=== PATIENT | male | born 1980 | race Caucasian/White ===

== ENCOUNTER 2025-03-31 09:54 | Inpatient (IN) | payer SELFPAY ==
[2025-03-31] VITALS (7 sets, daily range): BP systolic 128–160; BP diastolic 58–80; PULSE 64–98; RESP 17–20; TEMP 36.8–37; O2SAT 95–99; BMI 20.3
--- NOTE | 2025-03-31 | ECHO_ITS ---
Patient Info Name: Wilber Garza Age: 45 years : 1980 Gender: Male Ht: 72 in Wt: 149 lbs BSA: 1.84 m2 HR: 88 bpm BP: 140 / 75 mmHg Heart Rhythm: Sinus Rhythm Technical Quality: Good Exam Date: 03/31/2025 2:29 PM Patient Status: I Admit Date: 03/31/2025 Exam Type: CA echo doppler w bubble study Complete two-dimensional, color flow and Doppler transthoracic echocardiogram is performed with agitated saline. Staff Referring Physician: Sierra Flores Occupational Therapist Home Based: Mirian Limon Attending Provider: Reynaldo Herrera Contrast/Agitated Saline Contrast/Ag. Saline: Agitated Saline Amount: 20.00 ml Summary 1. Left ventricular chamber dimension is normal. 2. Left ventricular systolic function is normal, estimated at 60-65. 3. There is no increased left ventricular wall thickness. 4. The left ventricular diastolic function is grade I diastolic dysfunction. 5. Hypermobility seen in the right atrium. Possible Chiari network but more prominent than typical. Recommend advanced imaging such as transesophageal echocardiogram for further delineation. 6. There is mild tricuspid valve regurgitation. 7. There is mild pulmonic regurgitation. 8. A scant number of bubbles seen in the systemic circulation after several cardiac cycles with Valsalva. Consider tiny PFO or pulmonary AVM. Left Ventricle Left ventricular chamber dimension is normal. Left ventricular systolic function is normal, estimated at 60-65. There is no increased left ventricular wall thickness. The left ventricular diastolic function is grade I diastolic dysfunction. Right Ventricle Right ventricular chamber dimension is normal. Right ventricular systolic function is normal. Left Atria Left atrial chamber dimension is normal. Right Atria Right atrial chamber dimension is normal. Hypermobility seen in the right atrium. Possible Chiari network but more prominent than typical. Recommend advanced imaging such as transesophageal echocardiogram for further delineation. Atrial Septum A scant number of bubbles seen in the systemic circulation after several cardiac cycles with Valsalva. Consider tiny PFO or pulmonary AVM. Aortic Valve The aortic valve is trileaflet. There is mild aortic valve sclerosis. There is no aortic valve stenosis. There is trace aortic valve regurgitation. Pulmonic Valve The pulmonic valve is normal. There is no pulmonic valve stenosis. There is mild pulmonic regurgitation. Mitral Valve The mitral valve has normal leaflets. There is no mitral valve stenosis. There is trace mitral valve regurgitation. Tricuspid Valve The tricuspid valve leaflets are normal. There is no significant tricuspid valve stenosis. There is mild tricuspid valve regurgitation. No pulmonary hypertension, estimated pulmonary arterial systolic pressure is 34 mmHg. Pericardium/Pleural The pericardium appears normal. There is trivial pericardial effusion. Inferior Vena Cava Normal inferior vena cava with >50% collapse upon inspiration consistent with normal right atrial pressure, 5 mmHg. Aorta The aortic root size at the sinus of Valsalva is normal. Left Ventricular Outflow Tract Name Value Normal LVOT 2D LVOT Diameter 2.3 cm LVOT Doppler LVOT Peak Velocity 105 cm/s LVOT Peak Gradient 4 mmHg LVOT Mean Gradient 2 mmHg LVOT VTI 22 cm LVOT Stroke Volume 93 ml LVOT CO 8.5 l/min LVOT CI 4.6 l/min/m2 Pulmonic Valve Name Value Normal RVOT Doppler RVOT Peak Velocity 83 cm/s RVOT Peak Gradient 3 mmHg PV Doppler PV Peak Velocity 139 cm/s PV Peak Gradient 8 mmHg Mitral Valve Name Value Normal MV Doppler MV Peak Gradient 4 mmHg MV Mean Gradient 2 mmHg MV Area (Cont Eq VTI) 3.9 cm2 MV Diastolic Function MV E Peak Velocity 83 cm/s MV A Peak Velocity 85 cm/s MV E/A 1.0 MV Decel Time (PW) 291 ms MV Annular TDI MV E/e' (Septal) 8.2 MV E/e' (Lateral) 5.4 MV E/e' (Average) 6.8 Tricuspid Valve Name Value Normal Estimated PAP/RSVP RA Pressure 5 mmHg <=5 PA Systolic Pressure 34 mmHg <36 Aortic Valve Name Value Normal AV Doppler AV Peak Velocity 134 cm/s AV Peak Gradient 7 mmHg AV Area (Cont Eq Junaid) 3.3 cm2 AV DI (Junaid) 0.79 AV Regurgitation 2D LVOT Area 4.2 cm2 Ventricles Name Value Normal LV Dimensions 2D/MM IVS Diastolic Thickness (2D) 0.5 cm 0.6-1.0 LVID Diastole (2D) 5.2 cm 4.2-5.8 LVIW Diastolic Thickness (2D) 0.8 cm 0.6-1.0 LVID Systole (2D) 3.5 cm 2.5-4.0 LVOT Diameter 2.3 cm LV Mass (2D Cubed) 104.88 g 88.00-224.00 LV Mass Index (2D Cubed) 57 g/m2 49-115 Relative Wall Thickness (2D) 0.29 <=0.42 LV Fractional Shortening/Ejection Fraction 2D/MM LV Fractional Shortening (2D) 32 % 25-43 LV EF (2D Teichholz) 59 % LV Diastolic Volume (4C MOD) 132 ml LV EF (4C MOD) 64 % LV Diastolic Volume (2C MOD) 134 ml LV EF (2C MOD) 68 % LV Diastolic Volume (BP MOD) 138 ml 62-150 LV Diastolic Volume Index (BP MOD) 75 ml/m2 34-74 LV Systolic Volume (BP MOD) 47 ml 21-61 LV Systolic Volume Index (BP MOD) 26 ml/m2 11-31 LV EF (BP MOD) 66 % 52-72 LV Diastolic Length (4C) 8.7 cm LV Systolic Length (4C) 6.9 cm LV Stroke Volume (4C MOD) 85 ml Atria Name Value Normal LA Dimensions LA Volume (4C A-L) 32 ml LA Volume (BP A-L) 38 ml RA Dimensions RA Systolic Major [place] Length (4C) 5.1 cm 2.1-2.7 RA Area (4C) 14.2 cm2 <=18.0 Report Signatures
--- NOTE | ~2025-03-31 | CT_ITS ---
CTA NECK, CTA HEAD Clinical History: new L sided weakness Comparison: CT brain today TECHNIQUE: Helical images thoracic inlet to vertex IV contrast information not listed in PACS Coronal, sagittal reformats. Multi planar MIPS CT images acquired with automatic exposure control for dose reduction DLP: 1054 mGy-cm Findings: NASCET Criteria utilized CTA NECK Aortic arch: No aneurysm or dissection. Great vessel origins: No stenosis. CCAs: No stenosis. Cervical ICAs: No stenosis. Vertebral Arteries: Patent. Lung Apices: Clear. Thyroid: Unremarkable. Nodes: No enlarged nodes. Bones: No acute bony abnormality. CTA HEAD: Aneurysms: None. Intracranial ICAs: Patent, unremarkable. ACAs and their distal branches: Patent, unremarkable. A-Comm: Identified. Patent, unremarkable. MCAs and their distal branches: Patent, unremarkable. Basilar artery: Patent, unremarkable. plastering contractor and their distal branches: Patent, unremarkable. P-Comms: Neither side present. IMPRESSION: CTA NECK: 1. No acute findings. CTA HEAD: 1. No acute findings. Reviewed, dictated and finalized at location R. SITE DEVELOPER
--- NOTE | ~2025-03-31 | XR_ITS ---
Examination: XR chest 1V Clinical History: left sided weakness Comparison: None Technique: Portable AP Findings: Tiny circular metallic foreign body overlying right heart border. Rounded calcification right axilla. Heart size normal. Lungs clear. No acute bony abnormality. IMPRESSION: 1. No acute cardiopulmonary findings given portable technique. Reviewed, dictated and finalized at location [facility]. [facility]
--- NOTE | ~2025-03-31 | CT_ITS ---
CT HEAD NON-CONTRAST Clinical History: left sided weakness Comparison: None Technique: Unenhanced axial images skull base to vertex Coronal, sagittal reformats CT images acquired with automatic exposure control for dose reduction DLP: 605 mGy-cm Findings: Sulci, ventricles: Unremarkable. No intracerebral hemorrhage. No evidence acute territorial infarct. No mass effect, midline shift. Bony calvarium intact. Visualized paranasal sinuses: Clear. Mastoid air cells: Clear. IMPRESSION: 1. No acute intracranial findings. Reviewed, dictated and finalized at location [facility]. [facility]
--- NOTE | 2025-03-31 10:17 | ECG_ITS ---
Test Date: 2025-03-31 10:21:32 Measurements Intervals [place] Rate: 90 P: 78 ND: 154 QRS: 72 QRSD: 103 T: 57 QT: 340 QTc: 417 Interpretive Statements SINUS RHYTHM No previous ECG available for comparison Electronically Signed On 03-31-2025 13:40:14 FINANCE BUSINESS MANAGER by Prakash Ricks M.D.
[2025-03-31 10:40] LABS: Hematocrit 47.6 % (42.0-52.0); Hemoglobin 15.5 g/dL (14.0-18.0); Immature Granulocyte Percent A 0.5 % (0-0.5); Lymphocytes Absolute Auto 1.61 K/mm3 (0.9-3.2); Mean Corpuscular HGB Conc 32.6 g/dl (32-36); Mean Corpuscular Hemoglobin 28.9 pg (26-34); Mean Corpuscular Volume 88.8 fl (80-100); Nucleated Red Blood Cells Absolute Auto 0.000 K/mm3 (0.0-0.012); Nucleated Red Blood Cells Perc 0.0 % (0.0-0.2); Platelet Count Result 223 k/mm3 (150-375); Red Blood Count 5.36 M/mm3 (4.6-6.20); White Blood Count 14.0 K/mm3 (4.5-10.0)
[2025-03-31 10:53] LABS: Alanine Aminotransferase 28 U/L (6-50); Albumin Level 4.5 g/dL (3.5-5.1); Alkaline Phosphatase 119 U/L (38-126); Anion Gap 10 mmol/L (4-12); Aspartate Amino Transferase 26 U/L (17-59); Bilirubin,Total 0.4 mg/dL (0.2-1.3); Blood Urea Nitrogen 8 mg/dL (9-20); Calcium 9.5 mg/dL (8.4-10.2); Carbon Dioxide 22 mmol/L (22-30); Chloride 106 mmol/L (98-107); Estimated CRCL calculation 103 ml/min; Estimated Glomerular Filt Rate > 60; Glucose 167 mg/dL (65-110); Potassium 4.0 mmol/L (3.4-5.0); Sodium 138 mmol/L (137-145); Total Protein 7.6 g/dL (6.3-8.2)
[2025-03-31 11:04] LABS: INR 1.0; Prothrombin Time 13.1 Seconds (11.1-14.7)
[2025-03-31 11:05] LABS: Partial Thromboplastin Time 32.3 Seconds (22.3-36.8); Troponin I < 0.012 ng/mL (0.000-0.034)
--- OUTSIDE RECORDS SUMMARY | 2025-03-31 12:41 | XMS_ITS | Clinical Summary ---
Author Organization [facility] Address [address] [place] [address] Care Team Providers Care Warehouse Stock Clerk Name Role Phone Unavailable Primary Care Provider Unavailabl e Allergies No known active allergies Medications oxyCODONE-aceta minophen (PERCOCET) 5-325 mg Oral tablet 1 Tab. As needed Active moxifloxacin (MOXIFLOXICIN) 0.5 % OP solution Administer 2 Drops in left eye. 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 Gender Identity Not on file Sexual Orientation Not on file Last Filed Vital Signs Vital Sign Reading Time Taken Comments Blood Pressure 124/64 02/04/2012 5:06 PM CDT Pulse - - Temperature - - Respiratory Rate - - Oxygen Saturation - - Inhaled Oxygen Concentration - - Weight 72.6 kg (160 lb) 02/04/2012 5:06 PM CDT Height 182.9 cm (6') 02/04/2012 5:06 PM CDT Body Mass Index 21.7 02/04/2012 5:06 PM CDT Plan of Treatment Health Maintenance Due Date Last Done Comments DTAP/TDAP/TD VACCINES (1 - Tdap) 02/10/2000 HEPATITIS B VACCINES (1 of 3 - 19+ 3-dose series) 11/1999 HPV VACCINES (1 - 3-dose SCDM series) 02/10/2008 INFLUENZA VACCINE (#1) 2024
--- NOTE | 2025-03-31 14:01 | P.HP_ITS ---
H&P: HPI History of Present Illness Date/Time: 03/31/25 14:01 Chief Complaint: Left Sided Weakness Narrative: 45 y/o M current smoker with no significant PMH presents here with left sided weakness. The patient presents here from home on 03/31 for further evaluation of left sided weakness and speech changes. He first noticed change around 8-9 p.m. on 03/30 prior to going to bed. Noted numbness to his LUE, weakness in his LUE/LLE, and changes in the speech. States he last felt he was in his normal state of health around 4-5 p.m. on 03/30. Did not seek care at that time as he was tired and hoped his symptoms would resolve on their own. Patient then woke this morning with persistent symptoms including left upper extremity weakness, left lower extremity weakness that has made ambulation difficult, and dysarthria/slow speech. States the symptoms were worse compared to the day prior and have worsened since arrival. He denies previous history of TIA or CVA. He reports family history of stroke - mother. He is a current everyday smoker - 2 PPD. The patient is not currently on anticoagulation. Has not seen a primary care provider for some time or head general lab work. Initial VS at presentation: 98.2? F, HR 94, R 20, 148/74, and 98% on RA. ED workup showed: WBC 14.0, no anemia, normal coags, no significant electrolyte derangements, creatinine 0.76 and GFR >60, glucose 167, initial troponin negative. Head CT showed no acute intracranial findings. CXR showed no acute cardiopulmonary findings. Head/neck CTA showed no acute findings. EKG showed sinus rhythm, rate 90. Review of Systems Review of Systems: All systems reviewed & are unremarkable except as noted in HPI and below [facility] Past Medical History Medical History Current smoker Social History Social History Smoking packs per day: 2 Smoking cigarettes per day: 40.0 Smoking status: Current every day smoker Tobacco type: cigarettes Alcohol intake: never Substance use: current Substance use type: marijuana Lack of Transportation: No Lack of Food: Never True Current Housing: I Have Housing Concerned About Future Housing: No Difficulty Paying Gas/Electric Bills: No Difficulty Paying for Meds: No Currently Unemployed: No Education: High School Diploma/GED Difficulty w/ Childcare or Family Care: No Spiritual care concerns: No Meds Home Medications and Allergies Home Medications ?Medication ?Instructions ?Recorded ?Confirmed ?Type No Home Medications 03/31/25 03/31/25 H istory Allergies Allergy/AdvReac Type Severity Reaction Status Date / Time No Known Allergies Allergy Verified 03/31/25 15:27 Vital Signs Vital Signs - 24 hr 03/31/25 10:12 03/31/25 12:17 Temperature 98.2 F Pulse Rate 94 98 Respiratory Rate 20 20 Blood Pressure 148/74 H 160/78 H Pulse Oximetry 98 98 Oxygen Delivery Room Air Exam Const: General: comfortable and no acute distress Other: , male, nontoxic appearance HENMT: Face/Nose/Sinus: Normal nares present Mouth: Yes moist mucous membranes Eyes: General: appearance normal, both eyes and all related structures Sclera: sclerae normal Pupils: Equal, round and reactive pupils present EOM: EOMs intact bilaterally Resp: Effort & Inspection: normal respiratory effort Auscultation: clear to auscultation bilaterally Cardio: Rate: regular rate Rhythm: regular rhythm Other: S1-S2 present without murmur, rub, ectopy GI: Other: Abdomen soft, nondistended, nontender. Normoactive bowel sounds in all quadrants. Skin: General skin exam: normal color and no rashes or lesions noted Wounds: no wounds Neuro: Other: Left facial droop noted. Trace dysarthria, however more so slow speech deny. +4 LUE. + RLE/RUE. Trace weakness in the LLE. Significant group fitness department head weakness in the left hand. +ataxia in the LUE, present in the left lower extremity however not as significant as the LUE. EOM intact. A/Ox4. Extrem: General: normal to inspection Psych: Mental Status: mental status grossly normal Affect: normal affect Other: Good insight and judgment, pleasant H&P: Results Labs Labs: Short CBC 03/31/25 Range/Units 10:27 WBC 14.0 H (4.5-10.0) K/mm3 Hgb 15.5 (14.0-18.0) g/dL Hct 47.6 (42.0-52.0) % Plt Count 223 (150-375) k/mm3 [facility] 03/31/25 10:27 Sodium 138 Potassium 4.0 Chloride 106 Carbon Dioxide 22 BUN 8 L Creatinine 0.76 Glucose 167 H Calcium 9.5 Cardiac Enzymes 03/31/25 Range/Units 10:27 Troponin I < 0.012 (0.000-0.034) ng/mL Liver Function 03/31/25 Range/Units 10:27 Total Bilirubin 0.4 (0.2-1.3) mg/dL AST 26 (17-59) U/L ALT 28 (6-50) U/L Alkaline Phosphatase 119 (38-126) U/L Albumin 4.5 (3.5-5.1) g/dL Assessment and Plan Assessment and plan (1) Acute left-sided weakness: Code(s): R53.1 - Weakness Status: Acute Assessment and Plan: New deficits of left upper extremity weakness, left lower extremity weakness, ataxia, dysarthria starting on 03/31 at 8/9 p.m. Last known well at 4/5 p.m. on 03/30. - admission for observation and telemetry - not candidate for thrombolytics due to timeframe or thrombectomy as there is no LVO on CTA - CXR, Head CT, and CTA unremarkable on 03/31 - neurology consulted - brain MRI w/wo ordered - echo w/Bubble ordered - neuro checks Q4 - PT/OT/ST to eval and treat ST >> okay for regular diet (level 7) and thin liquids (0) - monitor daily labs, add lipid panel and A1C - start Atorvastatin 40 mg PO, Plavix 75 mg PO, ASA 81 mg - consider 30 day event monitoring at discharge if abnormalities noted on telemetry (2) Hyperglycemia: Code(s): R73.9 - Hyperglycemia, unspecified Status: Acute Assessment and Plan: - No previous history of diabetes. - Initial glucose 167. - Check A1C. (3) Current smoker: Code(s): F17.200 - Nicotine dependence, unspecified, uncomplicated Status: Chronic Assessment and Plan: 2 PPD. no current interest in cessation. - nicotine patch. Plan Diet: Heart healthy GI Prophylaxis: N/a DVT Prophylaxis: SCDs IV fluids: none Lines/Tubes: pIV Code Status: Full Code Quality VTE Prophylaxis VTE prophylaxis: mechanical ordered Hospitalist [facility] Advance Care Plan I have confirmed that the patient's Advanced Care Plan is present, code status is documented, or surrogate decision maker is listed in patient medical record.: Yes Medication Reconciliation I have utilized all available resources to obtain, update and review the patients current medications (includes all prescriptions, OTC, herbals, cannabis, and nutritional supplements).: Yes
--- NOTE | 2025-03-31 14:03 | ED.NEUROSD ---
HPI - Neuro Symptoms/Deficit General Chief Complaint: Neuro Symptoms/Deficit Stated Complaint: unable to move the left side since last night Time Seen by Provider: 03/31/25 12:22 History of Present Illness HPI Narrative: Right before patient went to bed last night, he noticed that his left side seems a little bit weaker, this morning when he woke up he was definitely much weaker on the left side, especially to his arm and leg. Has never had symptoms like this before. No history strokes or any other medical issues Related Data Allergies Allergy/AdvReac Type Severity Reaction Status Date / Time No Known Allergies Allergy Unverified 12/17/13 10:45 Review of Systems Review of Systems: All systems reviewed & are unremarkable except as noted in HPI and below Exam Narrative: EXAMINATION OF ORGAN SYSTEMS/BODY AREAS: Constitutional: Vital signs per nursing GENERAL:[No acute distress, non-toxic appearing.] HEAD: Normal with no signs of head trauma. EYES: EOMI, conjunctiva normal, PERRL ENT: Hearing grossly intact LUNGS: Nonlabored breathing. HEART: [Regular rate and rhythm] ABD: [Soft], [nontender to palpation] EXT: No obvious deformity SKIN: [No rashes or lesions.] NEURO: [Alert and oriented x 3. Slight drift and ataxia to left upper extremity, drift to left lower extremity, slightly diminished sensation to left upper extremity, no facial droop] PSYCH: Normal affect Course Vital Signs Vital signs: Vital Signs Temperature 98.2 F 03/31/25 10:12 Pulse Rate 94 03/31/25 10:12 Respiratory Rate 20 03/31/25 10:12 Blood Pressure 148/74 H 03/31/25 10:12 Pulse Oximetry 98 03/31/25 10:12 Oxygen Delivery Room Air 03/31/25 10:12 Temperature 98.2 F 03/31/25 10:12 Pulse Rate 95 03/31/25 14:11 Respiratory Rate 17 03/31/25 14:11 Blood Pressure 140/75 03/31/25 14:11 Pulse Oximetry 99 03/31/25 14:11 Oxygen Delivery Room Air 03/31/25 10:12 MDM - Neuro Symptoms/Deficit MDM Narrative Medical decision making narrative: Patient presents with acute left-sided weakness since last night. On exam he does have left-sided weakness, worst with left arm and leg compared to the right, though he still making effort against gravity. Does also have some slightly diminished sensation. Unfortunately out of tPA window, CTA head and neck does not show any large vessel occlusion amenable to intervention. He does have elevated white count otherwise unremarkable labs. EKG on my independent interpretation shows normal sinus rhythm rate 90, MS 154, QRS 103, QTC 417. No obvious ST elevations or depressions signs of acute ischemia or arrhythmia Discussed with patient findings, discussed with neurologist with plan for admission for MRI and possible rehab. Discussed with hospitalist. Lab Data 03/31/25 10:03/31/25 10: Labs: Lab Results 03/31/25 03/31/25 Range/Units 10: 10: WBC 14.0 H (4.5-10.0) K/mm3 RBC 5.36 (4.6-6.20) M/mm3 Hgb 15.5 (14.0-18.0) g/dL Hct 47.6 (42.0-52.0) % MCV 88.8 (80-100) fl MCH 28.9 (26-34) pg MCHC 32.6 (32-36) g/dl RDW 14.0 (11.5-14.5) % Plt Count 223 (150-375) k/mm3 MPV 10.8 H (7.4-10.4) fl Immature Gran % (Auto) 0.5 (0-0.5) % Neut % (Auto) 83.0 H (45.5-73.1) % Lymph % (Auto) 11.5 L (18.3-44.2) % [place] % (Auto) 4.6 (2.6-8.5) % Eos % (Auto) 0.1 (0-4.4) % Baso % (Auto) 0.3 (0.2-1.2) % Lymph # (Auto) 1.61 (0.9-3.2) K/mm3 [place] # (Auto) 0.7 H (0.1-0.6) K/mm3 Eos # (Auto) 0.0 (0-0.3) K/mm3 Baso # (Auto) 0.0 (0.0-0.1) K/mm3 Abs Immat Gran (auto) 0.07 H (0.00-0.031) K/mm3 Absolute Neuts (auto) 11.7 H (1.3-6.7) K/mm3 Absolute Nucleated RBC 0.000 (0.0-0.012) K/mm3 Nucleated RBC % 0.0 (0.0-0.2) % PT 13.1 (11.1-14.7) Seconds INR 1.0 APTT 32.3 (22.3-36.8) Seconds Sodium 138 (137-145) mmol/L Potassium 4.0 (3.4-5.0) mmol/L Chloride 106 (98-107) mmol/L Carbon Dioxide 22 (22-30) mmol/L Anion Gap 10 (4-12) mmol/L BUN 8 L (9-20) mg/dL Creatinine 0.76 (0.7-1.3) mg/dL Estim Creat Clear Calc 103 ml/min Estimated GFR > 60 (59 - ) Glucose 167 H (65-110) mg/dL POC Capillary Glucose 183 H (65-105) mg/dl Calcium 9.5 (8.4-10.2) mg/dL Total Bilirubin 0.4 (0.2-1.3) mg/dL AST 26 (17-59) U/L ALT 28 (6-50) U/L Alkaline Phosphatase 119 (38-126) U/L Troponin I < 0.012 (0.000-0.034) ng/mL Total Protein 7.6 (6.3-8.2) g/dL Albumin 4.5 (3.5-5.1) g/dL Critical Care Time Critical Care Time Critical Care Time: Yes Total Critical Care Time: 31 Discharge Plan Discharge Clinical Impression: Acute left-sided weakness Patient Disposition: Still a Patient Condition: Serious Quality Stroke Date of last known normal: 03/30/25 Time of last known normal: 22:00 Stroke Scale Stroke Scale 1: Stroke scale date:: 03/31/25 Stroke scale time:: 12:30 1a Level of consciousness: alert-0 1b Level of consciousness questions: answers both correctly-0 1c Level of consciousness commands: obeys both correctly-0 2 Best gaze: normal-0 3 Visual: no visual loss-0 4 Facial palsy: normal-0 5a Motor: left arm: drift-1 5b Motor: right arm: no drift-0 6a Motor: left leg: drift-1 6b Motor: right leg: no drift-0 7 Limb ataxia: present in one limb-1 8 Sensory: pinprick less sharp-1 9 Best language: no aphasia-0 10 Dysarthria: normal-0 11 Extinction and inattention: no abnormality-0 Level:: 4
[2025-03-31] MEDS: ASPIRIN 81 MG CHEWABLE TABLET 324 MG PO (14:13)
[2025-03-31] MEDS: CLOPIDOGREL BISULFATE 75 MG TABLET PO (14:13)
--- OUTSIDE RECORDS SUMMARY | 2025-03-31 14:18 | XMS_ITS | Clinical Summary ---
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
--- NOTE | 2025-03-31 14:20 | WPCEDHO ---
ED Hand Off Checklist All vitals saved:y IV Site documented:y All med administrations documented:y Triage Note Triage Note Brought to ed by family with 03/31/25 10:12 weakness to left side that started last night before he went to bed. Speech is slow and slurred at times. Has left arm drift and difficulty walking due to left leg weakness. Allergies No Known Allergies Allergy (Unverified 12/17/13 10:45) Administered/Completed Medications Discontinued Medications Aspirin (Aspirin 81 Mg Chewable Tablet) 324 mg PO ONCE STA Stop: 03/31/25 14:00 Last Admin: 03/31/25 14:13 Dose: 324 mg Documented By: DAMON Clopidogrel Bisulfate (Clopidogrel Bisulfate 75 Mg Tablet) 75 mg PO ONCE STA Stop: 03/31/25 14:00 Last Admin: 03/31/25 14:13 Dose: 75 mg Documented By: DAMON Interventions/Assessments IV / Saline Lock, Insert Start: 03/31/25 10:17 Freq: STAT Status: Active Protocol: Document 03/31/25 12:26 AZG (Rec: 03/31/25 12:26 AZG [id number]) IV Assessment Peripheral Access Right Forearm IV Catheter Access Initiated IV Insertion Date 03/31/25 IV Insertion Time 12:26 Catheter Gauge 18 IV Site Assessment WNL IV Care and WNL Maintenance PA: Neurological Assessment Start: 03/31/25 09:55 Freq: Status: Active Protocol: Document 03/31/25 12:43 AZG (Rec: 03/31/25 12:46 [email or web address] [id number]) Neurological Assessment Level of Alert,Awake Consciousness Arousable to Verbal Orientation Oriented to Person,Oriented to Place,Oriented to Time Neurological Weakness, Focal Symptoms Hallucination Type None Unable to Redirect No Behavior Behavior Appropriate,Cooperative Patient Able to Comprehend Comprehension Memory Description Intact Facial Symmetry Symmetrical Speech Pattern Delayed,Slurred Ability to Swallow Normal Tongue Position Midline Finger to Nose Test Minimal Impairment Heel to [place] Test Minimal Impairment Left Leg(s) Extremity Movement Weak Push Description Left Arm(s) Extremity Movement 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,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 Push Description Ricki Coma Scale Eyes Open Verbal Oriented and Alert Motor Follows Commands [place] Coma Total 15 Score Last Vital Signs Temperature 98.2 F 03/31/25 10:12 Pulse Rate 95 03/31/25 14:11 Respiratory Rate 17 03/31/25 14:11 Pulse Oximetry 99 03/31/25 14:11 Blood Pressure 140/75 03/31/25 14:11 Blood Pressure Mean 96 03/31/25 14:11 Blood Pressure Position Sitting 03/31/25 14:11 Oxygen Delivery Room Air 03/31/25 10:12 Weight 68 kg 03/31/25 10:12 Last Result - Abnormals Only WBC 14.0 K/mm3 (4.5-10.0) H 03/31/25 10:27 MPV 10.8 fl (7.4-10.4) H 03/31/25 10:27 Neut % (Auto) 83.0 % (45.5-73.1) H 03/31/25 10:27 Lymph % (Auto) 11.5 % (18.3-44.2) L 03/31/25 10:27 [place] # (Auto) 0.7 K/mm3 (0.1-0.6) H 03/31/25 10:27 Abs Immat Gran (auto) 0.07 K/mm3 (0.00-0.031) H 03/31/25 10:27 Absolute Neuts (auto) 11.7 K/mm3 (1.3-6.7) H 03/31/25 10:27 BUN 8 mg/dL (9-20) L 03/31/25 10:27 Glucose 167 mg/dL (65-110) H 03/31/25 10:27 POC Capillary Glucose 183 mg/dl (65-105) H 03/31/25 10:24 Most Recent Suicide Severity Rating Suicide Severity Rating NO RISK INDICATED 03/31/25 10:12
--- NOTE | 2025-03-31 15:18 | ADMGEN ---
This patient, Wilber Garza, was admitted to 2 Medical Room 255-01. Patient/family oriented to hospital policies and general routines including ID bracelet, bed and alarms, visiting hours, pain management, procedures, bathroom and other care routines, personal items, smoking policy, room service/diet, and visiting hours. Information on how to activate the Rapid Response Team has been discussed. Patient/Family are encouraged to report perceived risks to care and to ask questions if they do not understand what they are told or what they should do.
[2025-03-31] MEDS: NICOTINE (*PBKC) 21 MG PATCH 1 PATCH TRANSDERM (15:24)
--- NOTE | 2025-03-31 15:33 | PCSTNOTE ---
Please refer to the Bedside Swallow Evaluation in the EMR. Please note, silent aspiration cannot be ruled out at bedside.
[2025-04-01] VITALS: PULSE 59
[2025-04-01 04:00] VITALS: PULSE 57
[2025-04-01 04:01] VITALS: BP 118/61; PULSE 70; RESP 18; TEMP 36.8; O2SAT 99
[2025-04-01 04:29] LABS: Hematocrit 48.4 % (42.0-52.0); Hemoglobin 15.5 g/dL (14.0-18.0); Immature Granulocyte Percent A 0.4 % (0-0.5); Lymphocytes Absolute Auto 3.93 K/mm3 (0.9-3.2); Mean Corpuscular HGB Conc 32.0 g/dl (32-36); Mean Corpuscular Hemoglobin 28.5 pg (26-34); Mean Corpuscular Volume 89.0 fl (80-100); Nucleated Red Blood Cells Absolute Auto 0.000 K/mm3 (0.0-0.012); Nucleated Red Blood Cells Perc 0.0 % (0.0-0.2); Platelet Count Result 232 k/mm3 (150-375); Red Blood Count 5.44 M/mm3 (4.6-6.20); White Blood Count 13.1 K/mm3 (4.5-10.0)
[2025-04-01 04:54] LABS: Anion Gap 5 mmol/L (4-12); Blood Urea Nitrogen 8 mg/dL (9-20); Calcium 9.6 mg/dL (8.4-10.2); Carbon Dioxide 27 mmol/L (22-30); Chloride 107 mmol/L (98-107); Cholesterol 226 mg/dL (0-200); Estimated CRCL calculation 88 ml/min; Estimated Glomerular Filt Rate > 60; Glucose 111 mg/dL (65-110); HDL Direct 44 mg/dL; Potassium 4.0 mmol/L (3.4-5.0); Sodium 139 mmol/L (137-145); Triglycerides 120 mg/dL (<150)
--- NOTE | 2025-04-01 07:30 | P.PNIM_ITS ---
Progress Note: A&P Assessment and Plan (1) Acute left-sided weakness: Code(s): R53.1 - Weakness Status: Acute Assessment and Plan: New deficits of left upper extremity weakness, left lower extremity weakness, a taxia, dysarthria starting on 03/31 at 8/9 p.m. Last known well at 4/5 p.m. on 03/30. Not candidate for thrombolytics due to timeframe or thrombectomy as there is no LVO on CTA - Lipid panel - CXR, Head CT, and CTA unremarkable on 03/31 - MRI ordered - Echo ordered - Start high-intensity statin - start Atorvastatin 40 mg PO, Plavix 75 mg PO, ASA 81 mg - Initiate stroke protocol, NIH Stroke Scale, neuro's q.4 hours - Monitor CBC, CMP, magnesium, troponin, and lipid profile - Monitor blood pressure, allow for permissive hypertension. - Telemetry monitoring - Monitor blood glucose - PT/OT/ST to eval and treat ST >> okay for regular diet (level 7) and thin liquids (0) - consider 30 day event monitoring at discharge if abnormalities noted on telemetry - Neurology consulted, appreciate assistance and recommendations (2) Hyperglycemia: Code(s): R73.9 - Hyperglycemia, unspecified Status: Acute Assessment and Plan: - No previous history of diabetes. - Initial glucose 167. - Check A1C, pending (3) Current smoker: Code(s): F17.200 - Nicotine dependence, unspecified, uncomplicated Status: Chronic Assessment and Plan: 2 PPD. no current interest in cessation. - nicotine patch. Subjective Date/time seen: 04/01/25 07:30 Interval history: 45 year old male smoker with no significant PMH presents to the hospital with left sided weakness and speech changes. Review of Systems Review of Systems: All systems reviewed & are unremarkable except as noted in HPI and below Exam Narrative: AF General: well nourished, well-developed male in no acute respiratory distress who is nontoxic appearing, lying semi recumbent in bed. HEENT: Normocephalic. Atraumatic. Pupils equal round reactive to light. Extraocular movement intact. Sclera clear and anicteric. Nares patent. No oral lesions. Moist mucous membranes. Tongue is midline. Palate estee symmetrically. No facial asymmetry. Neck: Neck was supple. No dominant adenopathy, thyromegaly or masses. 2+ carotid upstrokes without bruits. Chest: Lungs are clear to auscultation bilaterlly. No wheezes or crackles. CV: Heart was regular rate and rhythm. S1/S2. No murmurs, gallops, or rubs. Abd: Abdomen was soft. Nontender. Nondistended. Postive bowel sounds. No organomegaly or masses. Ext: No clubbing, cyanosis, or edema. 2+ DP pulses bilaterally. Neuro: Patient is alert and oriented x4. Strenth is 5/5 in both upper and lower extremities. Cranial nerves 2-12 are intact. Speech is clear. Psych: Normal nood and affect. Patient is pleasant and cooperative. Skin: Warm and dry. No rashes noted. Objective Data Vital Signs Vital Signs: Vital Signs - 24 hr 03/31/25 10:12 03/31/25 12:17 03/31/25 14:11 Temperature 98.2 F Pulse Rate 94 98 95 Respiratory Rate 20 20 17 Blood Pressure 148/74 H 160/78 H 140/75 Pulse Oximetry 98 98 99 Oxygen Delivery Room Air 03/31/25 15:13 03/31/25 15:20 03/31/25 16:00 Temperature 98.6 F Pulse Rate 89 93 Respiratory Rate 18 Blood Pressure 136/80 Pulse Oximetry 95 Oxygen Delivery Room Air 03/31/25 19:29 03/31/25 20:00 04/01/25 00:00 Temperature 98.2 F Pulse Rate 70 64 59 L Respiratory Rate 18 Blood Pressure 128/58 L Pulse Oximetry 99 Oxygen Delivery 04/01/25 04:00 04/01/25 04:01 Temperature 98.3 F Pulse Rate 57 L 70 Respiratory Rate 18 Blood Pressure 118/61 Pulse Oximetry 99 Oxygen Delivery Intake/Output Intake/Output: Intake & Output 03/29/25 03/30/25 03/31/25 04/01/25 23:59 23:59 23:59 23:59 Intake Total 250 390 Output Total 200 200 Balance 50 190 Meds/Results Medications: Active Medications Generic Name Dose Route Start Last Admin Trade Name Freq PRN Reason Stop Dose Admin Acetaminophen 650 mg 03/31/25 14:12 Acetaminophen 325 Mg Tablet PO Q4H PRN Mild Pain (1-3) or Fever Aspirin 81 mg 04/01/25 09:00 Aspirin 81 Mg Enteric Tablet PO [facility] Atorvastatin Calcium 40 mg 04/01/25 09:00 Atorvastatin 40 Mg Tablet PO DAILY [facility] Bisacodyl 5 mg 03/31/25 14:12 Bisacodyl 5 Mg Tablet Ec PO DAILY PRN Constipation Calcium Carbonate 200 mg 03/31/25 14:12 Calcium Carbonate (Tums) 500 Mg (200 Mg Elemental) PO Q6H PRN Indigestion Clopidogrel Bisulfate 75 mg 04/01/25 09:00 Clopidogrel Bisulfate 75 Mg Tablet PO QAM [facility] Nicotine 1 patch 04/01/25 09:00 Nicotine (*Pbkc) 21 Mg Patch TRANSDERM DAILY [facility] Ondansetron HCl 4 mg 03/31/25 14:12 Ondansetron Inj 4 Mg/2 Ml Vial IV PUSH Q6H PRN Nausea And Vomiting Perflutren Lipid Microsphere 0 ml 03/31/25 14:09 Perflutren Lipid Microspheres 1.5 Ml Vial Diluted To 10 Ml Total Volume IV PUSH 04/03/25 14:09 ONCE PRN adequate visualization Protocol Radiology Results: ITS Impressions Head CT 03/31/25 10:55 IMPRESSION: 1. No acute intracranial findings. Chest X-Ray 03/31/25 11:05 IMPRESSION: 1. No acute cardiopulmonary findings given portable technique. Head/Neck CTA 03/31/25 13:29 IMPRESSION: CTA NECK: 1. No acute findings. CTA HEAD: 1. No acute findings. Labs Labs: Laboratory Results - last 24 hr 03/31/25 03/31/25 04/01/25 10:24 10:27 04:22 WBC 14.0 H 13.1 H RBC 5.36 5.44 Hgb 15.5 15.5 Hct 47.6 48.4 MCV 88.8 89.0 MCH 28.9 28.5 MCHC 32.6 32.0 RDW 14.0 14.1 Plt Count 223 232 MPV 10.8 H 10.4 Immature Gran % (Auto) 0.5 0.4 Neut % (Auto) 83.0 H 62.0 Lymph % (Auto) 11.5 L 30.0 [place] % (Auto) 4.6 6.8 Eos % (Auto) 0.1 0.3 Baso % (Auto) 0.3 0.5 Lymph # (Auto) 1.61 3.93 H [place] # (Auto) 0.7 H 0.9 H Eos # (Auto) 0.0 0.0 Baso # (Auto) 0.0 0.1 Abs Immat Gran (auto) 0.07 H 0.05 H Absolute Neuts (auto) 11.7 H 8.1 H Absolute Nucleated RBC 0.000 0.000 Nucleated RBC % 0.0 0.0 PT 13.1 INR 1.0 APTT 32.3 Sodium 138 139 Potassium 4.0 4.0 Chloride 106 107 Carbon Dioxide 22 27 Anion Gap 10 5 BUN 8 L 8 L Creatinine 0.76 0.90 Estim Creat Clear Calc 103 88 Estimated GFR > 60 > 60 Glucose 167 H 111 H POC Capillary Glucose 183 H Calcium 9.5 9.6 Total Bilirubin 0.4 AST 26 ALT 28 Alkaline Phosphatase 119 Troponin I < 0.012 Total Protein 7.6 Albumin 4.5 Triglycerides 120 Cholesterol 226 H LDL Cholesterol Direct 145 HDL Direct 44 Quality VTE Prophylaxis VTE prophylaxis: mechanical ordered
[2025-04-01] MEDS: CLOPIDOGREL BISULFATE 75 MG TABLET PO (09:00)
[2025-04-01] MEDS: ASPIRIN 81 MG ENTERIC TABLET PO (09:01)
[2025-04-01] MEDS: ATORVASTATIN 40 MG TABLET PO (09:01)
--- NOTE | 2025-04-01 11:56 | P.PNCROSS_ITS ---
Event Note Event Note Event Note: Received a call from RN that patient wished to leave AMA. Attempted to see kate ent prior to him leaving however he was already gone upon arrival to the room. AMA forms have been signed.
[2025-04-01 18:00] LABS: Hemoglobin A1C 5.6 % (<5.7)
== END 2025-04-01 09:20 | disposition left against medical advice (07) | DRG 861 ==
LOC: ANHED 14:03 → ANH2MED 14:15
PROVIDERS: Emergency Medicine; Student in an Organized Health Care Education/Training Program; Admitting Provider Internal Medicine; Emergency Provider Emergency Medicine; Visit Provider Internal Medicine
DX: R53.1 Weakness (principal); R27.0 Ataxia, unspecified; R47.1 Dysarthria and anarthria; R73.9 Hyperglycemia, unspecified; F17.210 Nicotine dependence, cigarettes, uncomplicated
CPT/HCPCS: 36415; 70450; 70496; 70498; 71045; 80048; 80053; 80061; 82948; 83036; 84484; 85025; 85610; 85730; 92526; 92610; 93005; 93306; 96375; 99285; A9270; Q9967